=== PATIENT | female | born 1960 | race Caucasian/White ===

== ENCOUNTER 2018-11-03 11:32 | Inpatient (IN) | payer BC ==
[~2018-11-03] VITALS: Ht 157.5 cm; Wt 68.9 kg
[2018-11-03] VITALS (11 sets, daily range): BP systolic 114–143; BP diastolic 63–100
[2018-11-03] MEDS ORDERED: ondansetron/PF 4mg/2ml inj IV ONE ×2 (12:00→14:40)
[2018-11-03] MEDS ORDERED: normal saline 1000ML IV soln IVB ONE ×2 (12:00→12:10)
[2018-11-03] MEDS: morphine 4 MG/ML inj SYRINge IV PRN ×4 (12:10→14:00)
[2018-11-03 12:22] LABS: BASOPHILS % (AUTO) 0.3 % (0-1); EOSINOPHILS % (AUTO) 0 % (0-6); HEMOGLOBIN 13.4 g/dl (12.0-16.0); LYMPHOCYTES # (AUTO) 1.1 X10'3 (1.1-4.8); LYMPHOCYTES % (AUTO) 6.3 % (21-51); MEAN CORPUSCULAR HEMOGLOBIN 29.4 PG (27.0-31.0); MEAN CORPUSCULAR HGB CONC 33.5 g/dL (33.0-36.5); MEAN CORPUSCULAR VOLUME 87.8 FL (78-98); MEAN PLATELET VOLUME 8.6 FL (7.4-10.4); MONOCYTES # (AUTO) 0.9 X10'3 (0-0.9); NEUTROPHILS # (AUTO) 15.3 X10'3 (1.8-7.7); NEUTROPHILS % (AUTO) 88.4 % (42-75); PLATELET COUNT 336 X10'3 (140-440); RED BLOOD COUNT 4.56 X10'6 (4.20-5.60); RED CELL DISTRIBUTION WIDTH 14.3 % (11.5-14.5); WHITE BLOOD COUNT 17.3 X10'3 (4.5-11.0)
[2018-11-03 12:43] LABS: ALANINE AMINOTRANSFERASE 32 U/L (12-78); ALKALINE PHOSPHATASE 92 IU/L (46-116); ANION GAP 9 (8-16); ASPARTATE AMINO TRANSFERASE 12 U/L (10-37); BILIRUBIN,TOTAL 0.7 MG/DL (0.1-1.0); BLOOD UREA NITROGEN 8 MG/DL (7-18); BUN/CREATININE RATIO 12.3 (6.6-38.0); CALCIUM 9.2 MG/DL (8.5-10.1); CHLORIDE 98 MMOL/L (99-107); CREATININE 0.65 MG/DL (0.40-0.90); GLUCOSE 111 MG/DL (70-104); LIPASE 81 U/L (73-393); POTASSIUM 3.5 MMOL/L (3.5-5.1); SODIUM 135 MMOL/L (135-145); TOTAL CARBON DIOXIDE 27.6 MMOL/L (24-32); TOTAL PROTEIN 7.9 G/DL (6.4-8.2); eGFR > 90 ML/MIN
[2018-11-03 13:01] LABS: PLATELET ESTIMATE NORMAL; TOTAL CELLS COUNTED 100
[2018-11-03] MEDS ORDERED: iohexol 300mg/ml 100ml inj. ONE (13:15)
[2018-11-03 13:27] LABS: CLARITY,URINE CLEAR (Clear); COLOR,URINE STRAW (Yellow); GLUCOSE, URINE NEGATIVE (Neg); KETONES,URINE NEGATIVE (Neg); LEUKOCYTE ESTERASE ,URINE NEGATIVE (Neg); NITRITES, URINE NEGATIVE (Neg); OCCULT BLOOD,URINE NEGATIVE (Neg); PROTEIN,URINE NEGATIVE (Neg); UROBILINOGEN,URINE 0.2 E.U/dL (0.2-1.0)
[2018-11-03 13:32] LABS: UA COLLECTION TYPE CLN CATCH MIDSTREAM
[2018-11-03] MEDS ORDERED: HYDROmorphone 1 mg/ml syringe IV ONE (14:00)
[2018-11-03] MEDS ORDERED: levoFLOXACIN-Levaquin 750MG/D5 150 ML IV ONE (14:20)
[2018-11-03] MEDS ORDERED: metroNIDAZOLE-Flagyl 500mg/NS 100 ML IV ONE (14:20)
[2018-11-03] MEDS ORDERED: acetaminophen 325mg tablet PO PRN (14:30)
[2018-11-03] MEDS ORDERED: mag hydrox/Alum hydrox/simeth 30ml oral suspension PO PRN (14:30)
[2018-11-03] MEDS ORDERED: magnesium hydroxide 30ml (MOM) UD suspension PO PRN (14:30)
[2018-11-03] MEDS ORDERED: morphine 2 MG/ML inj. syringe IV PRN ×2 (14:30)
[2018-11-03] MEDS ORDERED: ATEN-169 PO ×2 (14:37→14:45)
[2018-11-03] MEDS ORDERED: KEN0.1O TOP (15:33)
--- NOTE | 2018-11-03 16:00 | NUR ---
Pt has arrived to floor, appears stable but slightly painful
[2018-11-03] MEDS: normal saline 1000ml 1,000 ML IV SCH ×2 (16:24→22:03)
--- NOTE | 2018-11-03 17:00 | NUR ---
Dr Neumann has seen pt and plans for 2000 surgery, will begin on pre-op procedures.
[2018-11-03] MEDS ORDERED: metoclopramide 5 mg/ml inj IV ONE (17:15)
[2018-11-03] MEDS ORDERED: triamcinolone acet 0.1% cream 15gm TP PRN (17:35)
[2018-11-03] MEDS ORDERED: famotidine/PF 10 mg/ml inj IV ONE (17:55)
[2018-11-03] MEDS ORDERED: BUPIVAcaine/PF 2.5mg/ml (0.25%) 10ml vial ONE ×2 (17:58→20:54)
[2018-11-03 18:24] LABS: BASOPHILS % (AUTO) 0.1 % (0-1); EOSINOPHILS % (AUTO) 0 % (0-6); HEMATOCRIT 43.2 % (35.0-45.0); HEMOGLOBIN 14.6 g/dl (12.0-16.0); LYMPHOCYTES # (AUTO) 0.5 X10'3 (1.1-4.8); LYMPHOCYTES % (AUTO) 6.9 % (21-51); MEAN CORPUSCULAR HEMOGLOBIN 29.9 PG (27.0-31.0); MEAN CORPUSCULAR HGB CONC 33.7 g/dL (33.0-36.5); MEAN CORPUSCULAR VOLUME 88.8 FL (78-98); MEAN PLATELET VOLUME 9.3 FL (7.4-10.4); MONOCYTES # (AUTO) 0.3 X10'3 (0-0.9); MONOCYTES % (AUTO) 4.4 % (2-12); NEUTROPHILS # (AUTO) 6.3 X10'3 (1.8-7.7); NEUTROPHILS % (AUTO) 88.6 % (42-75); PLATELET COUNT 232 X10'3 (140-440); RED BLOOD COUNT 4.87 X10'6 (4.20-5.60); RED CELL DISTRIBUTION WIDTH 14.6 % (11.5-14.5); WHITE BLOOD COUNT 7.1 X10'3 (4.5-11.0)
[2018-11-03 18:27] LABS: ALANINE AMINOTRANSFERASE 25 U/L (12-78); ALBUMIN 3.2 G/DL (3.4-5.0); ALBUMIN/GLOBULIN RATIO 0.9 (1.1-1.5); ALKALINE PHOSPHATASE 79 IU/L (46-116); ANION GAP 10 (8-16); ASPARTATE AMINO TRANSFERASE 18 U/L (10-37); BILIRUBIN,TOTAL 0.8 MG/DL (0.1-1.0); BLOOD UREA NITROGEN 6 MG/DL (7-18); BUN/CREATININE RATIO 9.1 (6.6-38.0); CALCIUM 8.4 MG/DL (8.5-10.1); CHLORIDE 105 MMOL/L (99-107); CREATININE 0.66 MG/DL (0.40-0.90); GLUCOSE 116 MG/DL (70-104); SODIUM 140 MMOL/L (135-145); TOTAL CARBON DIOXIDE 24.8 MMOL/L (24-32); TOTAL PROTEIN 6.7 G/DL (6.4-8.2); eGFR > 90 ML/MIN
[2018-11-03 18:33] LABS: POTASSIUM 3.4 MMOL/L (3.5-5.1)
--- NOTE | 2018-11-03 18:45 | NUR ---
OR here to take pt. Notified OR supervisor in charge that patient did not receive atenolol this AM, potassium had dropped to 3.4, and pepcid had not been given.
--- NOTE | 2018-11-03 18:50 | NUR ---
Problems reprioritized. Patient report given, questions answered & plan of care reviewed with Pati SANDOVAL. Pt preparing to go down for surgery.
[2018-11-03] MEDS ORDERED: ringers solution, lacted 1,000 ML IV SCH (18:59)
[2018-11-03] MEDS ORDERED: meperidine/PF 25mg/ml syringe IV PRN ×2 (19:00)
[2018-11-03] MEDS ORDERED: ondansetron/PF 4mg/2ml inj IV PRN ×2 (19:00→21:20)
[2018-11-03] MEDS ORDERED: morphine 4 MG/ML inj SYRINge IV PRN ×2 (19:00)
[2018-11-03] MEDS ORDERED: fentaNYL/PF 50MCG/1 ML 2ML syringe ONE (19:10)
[2018-11-03] MEDS ORDERED: midazolam 2 mg/2 ml injection ONE (19:11)
[2018-11-03] MEDS ORDERED: propofol inj 20 ML IV ONE (19:12)
[2018-11-03 19:16] LABS: PARTIAL THROMBOPLASTIN TIME 28 SECONDS (22-32)
[2018-11-03] MEDS ORDERED: ondansetron/PF 4mg/2ml inj ONE (19:17)
[2018-11-03] MEDS ORDERED: acetaminophen 1000 MG/100ml vial IV ONE (19:17)
[2018-11-03] MEDS ORDERED: sevoflurane 250ml liquid IH ONE (19:17)
[2018-11-03] MEDS ORDERED: clindamycin phosphate 150mg/ml inj. ONE (20:30)
[2018-11-03] MEDS ORDERED: gentamicin 40 MG/1 ML inj ONE (20:30)
[2018-11-03] MEDS ORDERED: dexamethasone sod phosphate 4mg/ml inj. ONE (20:52)
[2018-11-03] MEDS ORDERED: rocuronium 10mg/ml inj IV ONE (20:52)
[2018-11-03] MEDS ORDERED: BUPIVACAINE liposomal/PF 13.3 MG/ML vial IM ONE (20:54)
[2018-11-03] MEDS ORDERED: glycopyrrolate 0.2mg/ml inj ONE (21:36)
[2018-11-03] MEDS ORDERED: neostigmine methylsulfate 1 MG/ML 10ml vial ONE (21:36)
--- NOTE | 2018-11-03 21:44 | NUR ---
Received from OR via BED, accompanied by Anesthesiologist DR CONCEPCION and report given by Anesthesiologist. PT DROWSY, DENIES PAIN, ABDOMEN W/1/4 INCH PACKING, 4X4'S AND MEDIPORE TAPE COVERING W/MEDIUM SIZED S/S DRAINAGE ON DRSG, OUTLINED W/MARKER, WILL CONTINUE TO MONITOR. Addendum: 11/03/18 at 8864 by Sally Hair RN Amended: Links added.
[2018-11-03] MEDS: meperidine/PF 25mg/ml syringe IV PRN ×3 (21:58→22:36)
--- NOTE | 2018-11-03 22:15 | NUR ---
Received report from LORI Field from recovery. Ruptured open appy. 1/4 inch packing between yue covered with 4x4 and medipore tape; drainage outlined. Has CHEYENNE with small amount ss drainage. EBL <100mL. Had been sinus tack, now HR 103 sating 100% on 2L NC. Received 12.5 of demerol; may repeat dose prior to bringing to surgical floor. FC in place. Received trans abd pain meds in peritoneum. States may or may not be effective due to rupture. LR running. Plan to return to floor within next 20 minutes.
--- NOTE | 2018-11-03 22:44 | NUR ---
Report called to receiving nurse. Transferred IN STABLE CONDITION, PAIN CONTROLLED via BED, NO Belongings, RECEIVING RN AT BEDSIDE TO RECEIVE PT, BLL, CALL LIGHT GIVEN, SIDE RAILS UP X 2, PTS PRESENT. Special Issues communicated to receiving nurse. YES. Addendum: 11/03/18 at 2255 by Sally Hair RN Amended: Links added.
--- NOTE | 2018-11-03 23:02 | NUR ---
Patient arrived to floor from recovery room. Patient states groggy and is unable to give a pain number rating. States it is way better than what is was before. storehouse clerk reports patient received another 12.5 demerol since report. Abd soft, bowel sounds auscultated; right side normal, left side hypoactive. Shadowing increased from recovery room outlining by a small amount. SCD's and 2L O2 running. Patient states sensation unaltered. VSS. in room. Denies nausea, small amount of ice chips provided. Advised patient to call early when pain increases, advised to take in ice chips slowly, advised I will be assessing abdomen frequently for increased bleeding and distention.
[2018-11-03] MEDS: metroNIDAZOLE-Flagyl 500mg/NS 100 ML IV SCH (23:51)
[2018-11-04] MEDS: potassium CL 20mEq in D5-1/2NS 1,000 ML IV SCH ×5 (00:46→23:48)
--- NOTE | 2018-11-04 01:00 | NUR ---
Pt c/o NC. Reduced O2 to 1L, sats at 95%. Further reduced to RA, sats dropped to 90%. Replaced at 1L. Will continue to reassess.
[2018-11-04] MEDS: HYDROmorphone 1 mg/ml syringe IV PRN ×3 (01:29→17:17)
--- NOTE | 2018-11-04 03:26 | NUR ---
All post op vitals lost, except initial reading on return to the surgical floor. Patient has been monitored frequently during this time, VSS. When VS machine unplugged, all vital readings lost.
[2018-11-04 04:00] VITALS: BP 107/68
[2018-11-04] MEDS: normal saline 1000ml 1,000 ML IV SCH ×2 (04:43→18:03)
[2018-11-04 04:51] LABS: BASOPHILS % (AUTO) 0.1 % (0-1); EOSINOPHILS % (AUTO) 0 % (0-6); HEMATOCRIT 37.4 % (35.0-45.0); HEMOGLOBIN 12.3 g/dl (12.0-16.0); LYMPHOCYTES # (AUTO) 0.4 X10'3 (1.1-4.8); LYMPHOCYTES % (AUTO) 2.8 % (21-51); MEAN CORPUSCULAR HEMOGLOBIN 29.4 PG (27.0-31.0); MEAN CORPUSCULAR VOLUME 89.1 FL (78-98); MEAN PLATELET VOLUME 9.1 FL (7.4-10.4); MONOCYTES # (AUTO) 0.3 X10'3 (0-0.9); MONOCYTES % (AUTO) 2.4 % (2-12); NEUTROPHILS # (AUTO) 12.1 X10'3 (1.8-7.7); NEUTROPHILS % (AUTO) 94.7 % (42-75); PLATELET COUNT 263 X10'3 (140-440); RED CELL DISTRIBUTION WIDTH 14.5 % (11.5-14.5); WHITE BLOOD COUNT 12.8 X10'3 (4.5-11.0)
[2018-11-04 04:58] LABS: ALBUMIN 2.5 G/DL (3.4-5.0); ANION GAP 7 (8-16); BLOOD UREA NITROGEN 6 MG/DL (7-18); BUN/CREATININE RATIO 8.7 (6.6-38.0); CALCIUM 8.2 MG/DL (8.5-10.1); CHLORIDE 104 MMOL/L (99-107); CREATININE 0.69 MG/DL (0.40-0.90); GLUCOSE 201 MG/DL (70-104); POTASSIUM 3.6 MMOL/L (3.5-5.1); SODIUM 137 MMOL/L (135-145); TOTAL CARBON DIOXIDE 25.6 MMOL/L (24-32); eGFR 88 ML/MIN
--- NOTE | 2018-11-04 05:25 | NUR ---
O2 sats at 95% RA, DC'd NC.
--- NOTE | 2018-11-04 06:22 | NUR ---
Problems reprioritized. Patient report given, questions answered & plan of care reviewed with LORI Brady.
--- NOTE | 2018-11-04 06:25 | NUR ---
Patient in room [facility]. I have received report from Pati Burgess RN and had the opportunity to ask questions and assume patient care.
[2018-11-04 07:00] VITALS: BP 103/64
[2018-11-04] MEDS: atenolol 50mg tablet PO SCH (07:34)
[2018-11-04] MEDS: metroNIDAZOLE-Flagyl 500mg/NS 100 ML IV SCH ×3 (07:35→23:47)
--- NOTE | 2018-11-04 09:02 | NUR ---
Discontinued Vasquez catheter as ordered. Patient tolerated well. Encouraged patient to void as soon as she feels the urge.
[2018-11-04] MEDS: levoFLOXACIN-Levaquin 500mg/D5 100 ML IV SCH (09:14)
[2018-11-04 11:00] VITALS: BP 126/75
[2018-11-04] MEDS: ondansetron/PF 4mg/2ml inj IV PRN (14:12)
[2018-11-04 18:00] VITALS: BP 131/75
--- NOTE | 2018-11-04 18:22 | NUR ---
Problems reprioritized. Patient report given, questions answered & plan of care reviewed with Samuel SANDOVAL.
--- NOTE | 2018-11-04 18:51 | NUR ---
Patient in room [facility]. I have received report from Jason SANDOVAL and had the opportunity to ask questions and assume patient care.
[2018-11-04] MEDS: ketorolac trometh. 30mg/ml inj. IV PRN (22:56)
[2018-11-05] VITALS: BP 114/70
[2018-11-05 04:34] LABS: BASOPHILS % (AUTO) 0 % (0-1); EOSINOPHILS % (AUTO) 0.1 % (0-6); HEMATOCRIT 32.7 % (35.0-45.0); HEMOGLOBIN 10.7 g/dl (12.0-16.0); LYMPHOCYTES # (AUTO) 0.9 X10'3 (1.1-4.8); LYMPHOCYTES % (AUTO) 6.7 % (21-51); MEAN CORPUSCULAR HEMOGLOBIN 29.1 PG (27.0-31.0); MEAN CORPUSCULAR HGB CONC 32.7 g/dL (33.0-36.5); MEAN CORPUSCULAR VOLUME 88.9 FL (78-98); MEAN PLATELET VOLUME 8.5 FL (7.4-10.4); MONOCYTES # (AUTO) 0.5 X10'3 (0-0.9); MONOCYTES % (AUTO) 3.8 % (2-12); NEUTROPHILS # (AUTO) 12.4 X10'3 (1.8-7.7); NEUTROPHILS % (AUTO) 89.4 % (42-75); PLATELET COUNT 232 X10'3 (140-440); RED BLOOD COUNT 3.68 X10'6 (4.20-5.60); RED CELL DISTRIBUTION WIDTH 14.8 % (11.5-14.5); WHITE BLOOD COUNT 13.9 X10'3 (4.5-11.0)
[2018-11-05 04:49] LABS: ALBUMIN 2.4 G/DL (3.4-5.0); ANION GAP 7 (8-16); BLOOD UREA NITROGEN 13 MG/DL (7-18); BUN/CREATININE RATIO 14.6 (6.6-38.0); CALCIUM 8.7 MG/DL (8.5-10.1); CHLORIDE 101 MMOL/L (99-107); CREATININE 0.89 MG/DL (0.40-0.90); GLUCOSE 161 MG/DL (70-104); POTASSIUM 3.9 MMOL/L (3.5-5.1); SODIUM 131 MMOL/L (135-145); TOTAL CARBON DIOXIDE 23.5 MMOL/L (24-32); eGFR 65 ML/MIN
[2018-11-05] MEDS: ketorolac trometh. 30mg/ml inj. IV PRN (05:04)
--- NOTE | 2018-11-05 06:23 | NUR ---
Problems reprioritized. Patient report given, questions answered & plan of care reviewed with Jason SANDOVAL.
--- NOTE | 2018-11-05 06:34 | NUR ---
Patient in room [facility]. I have received report from Samuel SANDOVAL and had the opportunity to ask questions and assume patient care.
[2018-11-05 07:00] VITALS: BP 95/65
[2018-11-05] MEDS: normal saline 1000ml 1,000 ML IV SCH ×3 (07:23→17:18)
[2018-11-05] MEDS: atenolol 50mg tablet PO SCH (08:00)
[2018-11-05] MEDS: potassium CL 20mEq in D5-1/2NS 1,000 ML IV SCH (08:03)
[2018-11-05] MEDS: metroNIDAZOLE-Flagyl 500mg/NS 100 ML IV SCH ×3 (08:04→23:35)
[2018-11-05] MEDS: HYDROmorphone 1 mg/ml syringe IV PRN ×3 (08:04→17:01)
--- NOTE | 2018-11-05 08:42 | NUR ---
Wound packing removed as per MD order. Patient was medicated with Dilaudid prior to the procedure, patient tolerated the procedure. New wound dressing applied after cleaning the surrounding site. Wound yue intact, no signs of infection noted
[2018-11-05] MEDS: levoFLOXACIN-Levaquin 500mg/D5 100 ML IV SCH (10:46)
[2018-11-05 11:00] VITALS: BP 111/69
[2018-11-05] MEDS: ondansetron/PF 4mg/2ml inj IV PRN (12:09)
[2018-11-05] MEDS: HYDROcodone/acetaminophen 10/325mg tab PO PRN ×3 (15:25→23:21)
[2018-11-05 18:00] VITALS: BP 115/67
--- NOTE | 2018-11-05 18:43 | NUR ---
Patient in room [facility]. I have received report from Jason SANDOVAL and had the opportunity to ask questions and assume patient care.
[2018-11-05] MEDS: lactobacillus rhamnosus 10,000 MMU CELLS/CAPSULE PO SCH (19:27)
[2018-11-06 00:58] VITALS: BP 121/74
[2018-11-06] MEDS: normal saline 1000ml 1,000 ML IV SCH ×2 (02:04→07:36)
[2018-11-06] MEDS: ondansetron/PF 4mg/2ml inj IV PRN ×2 (02:26→11:11)
[2018-11-06] MEDS: HYDROcodone/acetaminophen 10/325mg tab PO PRN ×3 (04:32→20:23)
[2018-11-06 05:18] LABS: ALBUMIN 2.5 G/DL (3.4-5.0); ANION GAP 10 (8-16); BLOOD UREA NITROGEN 7 MG/DL (7-18); BUN/CREATININE RATIO 10.9 (6.6-38.0); CALCIUM 8.8 MG/DL (8.5-10.1); CHLORIDE 105 MMOL/L (99-107); CREATININE 0.64 MG/DL (0.40-0.90); GLUCOSE 100 MG/DL (70-104); SODIUM 138 MMOL/L (135-145); TOTAL CARBON DIOXIDE 22.9 MMOL/L (24-32); eGFR > 90 ML/MIN
[2018-11-06] MEDS: ketorolac trometh. 30mg/ml inj. IV PRN ×2 (05:22→15:32)
[2018-11-06 05:29] LABS: BASOPHILS % (AUTO) 0.1 % (0-1); EOSINOPHILS # (AUTO) 0.2 X10'3 (0-0.9); EOSINOPHILS % (AUTO) 1.2 % (0-6); HEMATOCRIT 38.8 % (35.0-45.0); HEMOGLOBIN 12.8 g/dl (12.0-16.0); LYMPHOCYTES # (AUTO) 0.9 X10'3 (1.1-4.8); LYMPHOCYTES % (AUTO) 5.8 % (21-51); MEAN CORPUSCULAR HEMOGLOBIN 29.7 PG (27.0-31.0); MEAN CORPUSCULAR HGB CONC 32.9 g/dL (33.0-36.5); MEAN CORPUSCULAR VOLUME 90.2 FL (78-98); MEAN PLATELET VOLUME 8.7 FL (7.4-10.4); MONOCYTES # (AUTO) 0.5 X10'3 (0-0.9); MONOCYTES % (AUTO) 3.5 % (2-12); NEUTROPHILS # (AUTO) 13.2 X10'3 (1.8-7.7); NEUTROPHILS % (AUTO) 89.4 % (42-75); PLATELET COUNT 271 X10'3 (140-440); RED CELL DISTRIBUTION WIDTH 14.7 % (11.5-14.5); WHITE BLOOD COUNT 14.8 X10'3 (4.5-11.0)
--- NOTE | 2018-11-06 06:21 | NUR ---
Problems reprioritized. Patient report given, questions answered & plan of care reviewed with LORI Holt.
[2018-11-06 07:00] VITALS: BP 137/85
[2018-11-06] MEDS: atenolol 50mg tablet PO SCH (08:15)
[2018-11-06] MEDS: lactobacillus rhamnosus 10,000 MMU CELLS/CAPSULE PO SCH ×2 (08:15→20:23)
[2018-11-06] MEDS: metroNIDAZOLE-Flagyl 500mg/NS 100 ML IV SCH ×2 (08:16→16:16)
[2018-11-06] MEDS: levoFLOXACIN-Levaquin 500mg/D5 100 ML IV SCH (08:16)
[2018-11-06 11:00] VITALS: BP 156/87
--- NOTE | 2018-11-06 16:59 | NUR ---
Patient in room [facility]. I have received report from KINGSLEY SANDOVAL and had the opportunity to ask questions and assume patient care.
[2018-11-06 18:00] VITALS: BP 155/85
--- NOTE | 2018-11-06 18:15 | NUR ---
GAVE REPORT TO KINGSLEY SANDOVAL
--- NOTE | 2018-11-06 18:42 | NUR ---
Patient in room [facility]. I have received report from Yanet SANDOVAL and had the opportunity to ask questions and assume patient care.
[2018-11-07] VITALS: BP 158/91
[2018-11-07] MEDS: metroNIDAZOLE-Flagyl 500mg/NS 100 ML IV SCH ×3 (00:17→16:13)
[2018-11-07] MEDS: ketorolac trometh. 30mg/ml inj. IV PRN ×2 (00:33→21:11)
[2018-11-07] MEDS: normal saline 1000ml 1,000 ML IV SCH (03:01)
[2018-11-07 05:29] LABS: ALBUMIN 2.4 G/DL (3.4-5.0); ANION GAP 10 (8-16); BLOOD UREA NITROGEN 5 MG/DL (7-18); BUN/CREATININE RATIO 9.4 (6.6-38.0); CALCIUM 8.8 MG/DL (8.5-10.1); CHLORIDE 108 MMOL/L (99-107); CREATININE 0.53 MG/DL (0.40-0.90); GLUCOSE 107 MG/DL (70-104); POTASSIUM 3.8 MMOL/L (3.5-5.1); SODIUM 145 MMOL/L (135-145); TOTAL CARBON DIOXIDE 26.7 MMOL/L (24-32); eGFR > 90 ML/MIN
[2018-11-07 05:48] LABS: BASOPHILS # (AUTO) 0.1 X10'3 (0-0.2); BASOPHILS % (AUTO) 0.5 % (0-1); EOSINOPHILS # (AUTO) 0.2 X10'3 (0-0.9); HEMATOCRIT 35.8 % (35.0-45.0); LYMPHOCYTES # (AUTO) 0.9 X10'3 (1.1-4.8); LYMPHOCYTES % (AUTO) 7.9 % (21-51); MEAN CORPUSCULAR HEMOGLOBIN 29.8 PG (27.0-31.0); MEAN CORPUSCULAR HGB CONC 33.4 g/dL (33.0-36.5); MEAN CORPUSCULAR VOLUME 89.2 FL (78-98); MEAN PLATELET VOLUME 8.2 FL (7.4-10.4); MONOCYTES # (AUTO) 0.6 X10'3 (0-0.9); MONOCYTES % (AUTO) 5.4 % (2-12); NEUTROPHILS # (AUTO) 9.2 X10'3 (1.8-7.7); NEUTROPHILS % (AUTO) 84.2 % (42-75); PLATELET COUNT 330 X10'3 (140-440); RED BLOOD COUNT 4.01 X10'6 (4.20-5.60); RED CELL DISTRIBUTION WIDTH 14.5 % (11.5-14.5)
--- NOTE | 2018-11-07 06:22 | NUR ---
Problems reprioritized. Patient report given, questions answered & plan of care reviewed with LORI Holt.
--- NOTE | 2018-11-07 07:10 | NUR ---
PT IS RUNNING A LOW GRADE TEMP 99.0 SHE IS FEARFUL TO DEEP BREATHE. GAVE HER AN IS, WILL RECHECK IN 30 MINUTES
[2018-11-07 07:15] VITALS: BP 170/89
[2018-11-07] MEDS: atenolol 50mg tablet PO SCH (07:32)
[2018-11-07] MEDS: lactobacillus rhamnosus 10,000 MMU CELLS/CAPSULE PO SCH ×2 (07:32→20:56)
[2018-11-07] MEDS: levoFLOXACIN-Levaquin 500mg/D5 100 ML IV SCH (07:33)
[2018-11-07] MEDS: enoxaparin 40mg/0.4ml syringe SUBCUT SCH (07:34)
[2018-11-07] MEDS: ondansetron/PF 4mg/2ml inj IV PRN (07:34)
--- NOTE | 2018-11-07 07:44 | NUR ---
rechecked temp after pt used is and got up to the bathroom. it went from 99.0 to 98.5
--- NOTE | 2018-11-07 09:11 | NUR ---
GAVE 4MG OF ZOFRAN BUT PT STATES IT ISN'T HELPING. ORDERED HER A SEVEN UP AND GAVE HER A SALTINE CRACKER. WILL REASSESS AFTER DRINK COMES FROM KITCHEN (they are allowed an hour to bring drinks)
--- NOTE | 2018-11-07 09:13 | NUR ---
Patient in room [facility]. I have received report from KINGSLEY SANDOVAL and had the opportunity to ask questions and assume patient care.
[2018-11-07 11:00] VITALS: BP 158/96
[2018-11-07] MEDS: HYDROcodone/acetaminophen 10/325mg tab PO PRN ×2 (14:15→23:35)
--- NOTE | 2018-11-07 18:20 | NUR ---
Patient in room [facility]. I have received report from Yanet Delacruz and had the opportunity to ask questions and assume patient care. Addendum: 11/07/18 at 1928 by Nelli Meade RN Amended: Links added.
--- NOTE | 2018-11-07 18:33 | NUR ---
GAVE REPORT TO SARBJIT SANDOVAL
[2018-11-07 20:00] VITALS: BP 154/89
--- NOTE | 2018-11-07 20:00 | NUR ---
pt up in the gaviria ambulating a lap and using is unit up to 1000.
--- NOTE | 2018-11-07 21:10 | NUR ---
medicated for c/o pain with iv toradol discussed pain meds with pt and options. afraid of getting nauseated after eating for first time so chose toradol plus wanted longer pain coverage so she could get some rest.
--- NOTE | 2018-11-07 21:44 | NUR ---
pt laying on right side resting after teACHING AND MEDICATION DONE. APPEARS COMFORTABLE.
--- NOTE | 2018-11-07 23:10 | NUR ---
up in g[facility]ia ambulating 2 laps after using the bathroom. then took po flagyl and medicated for pain with norco.
[2018-11-07] MEDS: metroNIDAZOLE 500mg tablet PO SCH (23:35)
[2018-11-08] VITALS: BP 155/76
--- NOTE | 2018-11-08 01:00 | NUR ---
resting eyes closed no s&s of distress at this time.
--- NOTE | 2018-11-08 02:38 | NUR ---
remains resting without changes.
--- NOTE | 2018-11-08 04:30 | NUR ---
pt awoke with lab in the room.
[2018-11-08] MEDS: HYDROcodone/acetaminophen 10/325mg tab PO PRN ×3 (05:28→19:56)
--- NOTE | 2018-11-08 05:30 | NUR ---
pt was up ambulating 2 laps in the gaviria then medicated for c/o pain with norco for this.
[2018-11-08 05:37] LABS: BASOPHILS % (AUTO) 0.3 % (0-1); EOSINOPHILS # (AUTO) 0.3 X10'3 (0-0.9); EOSINOPHILS % (AUTO) 3.2 % (0-6); HEMATOCRIT 32.1 % (35.0-45.0); HEMOGLOBIN 10.7 g/dl (12.0-16.0); LYMPHOCYTES # (AUTO) 1.4 X10'3 (1.1-4.8); LYMPHOCYTES % (AUTO) 16.4 % (21-51); MEAN CORPUSCULAR HEMOGLOBIN 29.6 PG (27.0-31.0); MEAN CORPUSCULAR HGB CONC 33.3 g/dL (33.0-36.5); MEAN CORPUSCULAR VOLUME 88.7 FL (78-98); MEAN PLATELET VOLUME 7.9 FL (7.4-10.4); MONOCYTES # (AUTO) 0.8 X10'3 (0-0.9); MONOCYTES % (AUTO) 8.9 % (2-12); NEUTROPHILS # (AUTO) 6.3 X10'3 (1.8-7.7); NEUTROPHILS % (AUTO) 71.2 % (42-75); PLATELET COUNT 332 X10'3 (140-440); RED BLOOD COUNT 3.62 X10'6 (4.20-5.60); RED CELL DISTRIBUTION WIDTH 14.3 % (11.5-14.5); WHITE BLOOD COUNT 8.8 X10'3 (4.5-11.0)
[2018-11-08 05:46] LABS: ALBUMIN 2.1 G/DL (3.4-5.0); ANION GAP 8 (8-16); BLOOD UREA NITROGEN 5 MG/DL (7-18); BUN/CREATININE RATIO 9.1 (6.6-38.0); CALCIUM 8.7 MG/DL (8.5-10.1); CHLORIDE 105 MMOL/L (99-107); CREATININE 0.55 MG/DL (0.40-0.90); GLUCOSE 111 MG/DL (70-104); POTASSIUM 3.2 MMOL/L (3.5-5.1); SODIUM 141 MMOL/L (135-145); TOTAL CARBON DIOXIDE 27.9 MMOL/L (24-32); eGFR > 90 ML/MIN
--- NOTE | 2018-11-08 06:28 | NUR ---
Problems reprioritized. Patient report given, questions answered & plan of care reviewed with Tere Delacruz. Addendum: 11/08/18 at 0628 by Nelli Meade RN Amended: Links added.
--- NOTE | 2018-11-08 06:48 | NUR ---
Patient in room [facility]. I have received report from Kristi SANDOVAL and had the opportunity to ask questions and assume patient care.
[2018-11-08 07:00] VITALS: BP 166/83
[2018-11-08] MEDS: atenolol 50mg tablet PO SCH (08:16)
[2018-11-08] MEDS: metroNIDAZOLE 500mg tablet PO SCH ×2 (08:16→15:25)
[2018-11-08] MEDS: lactobacillus rhamnosus 10,000 MMU CELLS/CAPSULE PO SCH ×2 (08:16→19:54)
[2018-11-08] MEDS: enoxaparin 40mg/0.4ml syringe SUBCUT SCH (08:19)
[2018-11-08 11:00] VITALS: BP 136/82
[2018-11-08] MEDS: levoFLOXACIN 500mg tablet PO SCH (11:24)
[2018-11-08] MEDS ORDERED: potassium Cl 20 mEq SR tablet PO PRN (12:15)
[2018-11-08] MEDS ORDERED: potassium CL 10mEq/100ml bag 100 ML IV PRN (12:15)
[2018-11-08] MEDS ORDERED: magnesium 4gm in 100ml NS 100 ML IV PRN (12:15)
[2018-11-08] MEDS ORDERED: magnesium Cl slow-release 64mg tablet PO PRN (12:15)
[2018-11-08] MEDS: potassium Cl 20 mEq SR tablet PO PRN ×3 (12:45→22:27)
--- NOTE | 2018-11-08 13:48 | NUR ---
Initial: Pt admit s/p open appendectomy. Surgical CHEYENNE 210ml output noted in EMR. Pt PO 50% full liquids and 25% first regular meal though noted to have some diarrhea per MD note likely effecting PO. Will monitor for additional protein needs pending further PO hx this admit. Rec: 1. continue regular diet 2. monitor for ONS needs 3. wt per rx Addendum: 11/08/18 at [address] Amended: Links added.
[2018-11-08] MEDS: ketorolac trometh. 30mg/ml inj. IV PRN (15:25)
[2018-11-08] MEDS: ondansetron/PF 4mg/2ml inj IV PRN (16:49)
--- NOTE | 2018-11-08 18:27 | NUR ---
Problems reprioritized. Patient report given, questions answered & plan of care reviewed with LORI Aiken.
--- NOTE | 2018-11-08 18:57 | NUR ---
Patient in room [facility]. I have received report from Tere Delacruz and had the opportunity to ask questions and assume patient care. Addendum: 11/08/18 at 1857 by Nelli Meade RN Amended: Links added.
[2018-11-08 20:00] VITALS: BP 141/76
--- NOTE | 2018-11-08 20:00 | NUR ---
pt medicated for pain with norco and up ambulating in the halls 3 laps 900 ft tolerated well. post op teaching reviewed with pt questions answered.
--- NOTE | 2018-11-08 22:05 | NUR ---
up ambulating in the gaviria 600 ft. tolerated well and then took yogurt and crackers with kdur replacement.
[2018-11-09] VITALS: BP 124/68
--- NOTE | 2018-11-09 00:15 | NUR ---
pt medicated with Flagyl po and [place] for pain. post op home care teaching reviewed with the pt to alleviate her anxiety about [address] home and post op care at home. pt is also going to surgery on Friday for colostomy take down,.
[2018-11-09] MEDS: metroNIDAZOLE 500mg tablet PO SCH ×2 (00:17→07:38)
[2018-11-09] MEDS: HYDROcodone/acetaminophen 10/325mg tab PO PRN ×2 (00:18→05:29)
--- NOTE | 2018-11-09 02:15 | NUR ---
resting eyes closed without s&s of distress at this time.
--- NOTE | 2018-11-09 04:10 | NUR ---
resting eyes closed without s&s of distress.
--- NOTE | 2018-11-09 05:07 | NUR ---
resting without changes
--- NOTE | 2018-11-09 05:52 | NUR ---
pt medicated with po norco for pain then per pt request Amauri removed after cleaning site cliping suture and removing it and drain slowly removed noting tubing drain intact and fully removed. dressed with folded 4x4 guaze and 3inch microfoam tape in place no new drainage. pt tolerated procedure well.
--- NOTE | 2018-11-09 06:35 | NUR ---
Patient in room [facility]. I have received report from LORI Aiken and had the opportunity to ask questions and assume patient care.
--- NOTE | 2018-11-09 06:50 | NUR ---
Problems reprioritized. Patient report given, questions answered & plan of care reviewed with MEET SANDOVAL. Addendum: 11/09/18 at 0650 by Nelli Meade RN Amended: Links added.
[2018-11-09 07:27] VITALS: BP 154/81
[2018-11-09 07:38] VITALS: BP_SYST 154
[2018-11-09] MEDS: atenolol 50mg tablet PO SCH (07:38)
[2018-11-09] MEDS: lactobacillus rhamnosus 10,000 MMU CELLS/CAPSULE PO SCH (07:38)
[2018-11-09] MEDS: enoxaparin 40mg/0.4ml syringe SUBCUT SCH (07:39)
[2018-11-09] MEDS ORDERED: LEVO500T2 PO (08:12)
[2018-11-09] MEDS ORDERED: METR-159 PO (08:12)
[2018-11-09] MEDS ORDERED: HYDR-4353 PO (08:24)
[2018-11-09] MEDS ORDERED: ketorolac trometh. 30mg/ml inj. IV ONE (09:20)
[2018-11-09] MEDS: levoFLOXACIN 500mg tablet PO SCH (10:50)
--- NOTE | 2018-11-09 11:20 | NUR ---
Patient discharged. PIV remove: cath tip intact. Education given and patient verbalized understanding. Patient received [place] via [facility] from [facility]. Dr. Neumann told the patient yesterday that she would follow up with her primary doctor to have the yue removed. I gave her Dr. Neumann's office number so that she could call if she has any questions that come up. I also told her that she could call the unit if she wanted to talk to a nurse as well. Patient was wheeled down by staff.
== END 2018-11-09 11:20 | disposition home or self-care (01) | DRG 340 ==
LOC: ER 11:33 → SUR 3N 15:25 → OBSVTOIN 15:25 → CMPBEDREQ 19:47 → SUR 3N 11-04 23:45
PROVIDERS: ADMIT Family Medicine; ATTEND Family Medicine
PROC: 0WJG4ZZ Inspection of Peritoneal Cavity, Percutaneous Endoscopic Approach (ICD-10-PCS; 2018-11-03)
PROC: 3E0T3BZ Introduction of Anesthetic Agent into Peripheral Nerves and Plexi, Percutaneous Approach (ICD-10-PCS; 2018-11-03)
PROC: BW211ZZ Computerized Tomography (CT Scan) of Abdomen and Pelvis using Low Osmolar Contrast (ICD-10-PCS; 2018-11-03)
PROC: 0DTJ0ZZ Resection of Appendix, Open Approach (ICD-10-PCS; principal; 2018-11-03 19:17)
DX: K35.32 Acute appendicitis with perforation, localized peritonitis, and gangrene, without abscess (principal); K80.20 Calculus of gallbladder without cholecystitis without obstruction; I10 Essential (primary) hypertension; Z98.51 Tubal ligation status; Z88.0 Allergy status to penicillin; Z88.8 Allergy status to other drugs, medicaments and biological substances; E87.6 Hypokalemia
CPT/HCPCS: 96361; 96365; 96375; 96376; 99285; Z7506; Z7508; 36415; 74177; 80048; 80053; 81003; 82948; 83605; 83690; 84145; 85025; 85610; 85730; 87081; A4618; A6407; A6449; A7000; C1758; C9290; G0378; J0131; J1100; J1170; J1580; J1650; J1885; J1956; J2175; J2250; J2270; J2405; J2704; J2710; J2765; J3010; J3480; J3490; J7030; J7120; Q9967